=== PATIENT | male | born 1990 | race Caucasian/White ===

== ENCOUNTER 2017-06-17 08:47 | Emergency (ER) | payer SELFPAY ==
[2017-06-17] MEDS ORDERED: Proparacaine 0.5% Ophth Soln 15 ML Bottle EYERT STA (09:01)
--- NOTE | 2017-06-17 09:12 | EDM.PDOC ---
ED HPI GENERAL MEDICAL PROBLEM - General Chief Complaint: Eye Problems Stated Complaint: RIGHT EYE PAIN Time Seen by Provider: 06/17/17 08:51 Source of Information: Reports: Patient History Limitations: Reports: No Limitations - History of Present Illness INITIAL COMMENTS - FREE TEXT/NARRATIVE: History of present illness: []Patient awoke with right eye pain and redness that worsened after showering. He works with several chemicals and was wondering if he reactivated a chemical with the water in his eye. He denies any trauma and states he has difficulty seeing out of that eye however he has difficulty opening the eye. Review of systems: As per history of present illness and below otherwise all systems reviewed and negative. Past medical history: As per history of present illness and as reviewed below otherwise noncontributory. Surgical history: As per history of present illness and as reviewed below otherwise noncontributory. Social history: No reported history of drug or alcohol abuse. Family history: As per history of present illness and as reviewed below otherwise noncontributory. Physical exam: General: Well developed, well nourished in NAD HEENT: Atraumatic, normocephalic, pupils reactive, negative for conjunctival pallor or scleral icterus there is mild erythema., mucous membranes moist, throat clear, neck supple, nontender, trachea midline. Lungs: Clear to auscultation, breath sounds equal bilaterally, chest nontender. Heart: S1S2, regular, negative for clicks, rubs, or JVD. Abdomen: Soft, nondistended, nontender. Negative for masses or hepatosplenomegaly. Negative for costovertebral tenderness. Pelvis: Stable nontender. Genitourinary: Deferred. Rectal: Deferred. Extremities: Atraumatic, negative for cords or calf pain. Neurovascular unremarkable. Neuro: Awake, alert, oriented. Cranial nerves II through XII unremarkable. Cerebellum unremarkable. Motor and sensory unremarkable throughout. Exam nonfocal. Diagnostics: []Left eye was anesthetized with proparacaine and stained with fluorescein showing an abrasion approximately 5 to 6:00 below the cornea, on the sclera Therapeutics: [] Impression: []Scleral abrasion Plan: []Erythromycin ointment 3 times a day Definitive disposition and diagnosis as appropriate pending reevaluation and review of above. Right Eye Pain Score (Numeric/FACES): 6 - Related Data Allergies Allergy/AdvReac Type Severity Reaction Status Date / Time No Known Allergies Allergy Verified 06/17/17 08:54 Home Meds: Home Meds Erythromycin Base [Erythromycin 0.5% Ophth Oint] 1 applic OP TID #1 tube [Rx] Past Medical History - Past Health History Medical/Surgical History: Denies Medical/Surgical History Social & Family History - Tobacco Use Smoking Status *Q: Current Every Day Smoker Years of Tobacco use: 5 Packs/Tins Daily: 0.5 Second Hand Smoke Exposure: No - Caffeine Use Caffeine Use: Reports: Coffee, Soda, Tea - Alcohol Use Days Per Week of Alcohol Use: 1 Number of Drinks Per Day: 5 Total Drinks Per Week: 5 - Recreational Drug Use Recreational Drug Use: No Drug Use in Last 12 Months: Yes Recreational Drug Type: Reports: Marijuana/Hashish Recreational Drug Use Frequency: Daily Recreational Drug Last Use: 3 weeks ago ED ROS GENERAL - Review of Systems Review Of Systems: See Below (See history of present illness) ED EXAM GENERAL W FULL EYE - Physical Exam Exam: See Below (See history of present illness) Course - Vital Signs Last Recorded V/S: Last Vital Signs Temp 35.9 C 06/17/17 08:58 Pulse 71 06/17/17 08:58 Resp 18 06/17/17 08:58 BP 129/73 06/17/17 08:58 Pulse Ox 97 06/17/17 08:58 - Orders/Labs/Meds Meds: Medications Discontinued Medications Generic Name Dose Route Start Last Admin Trade Name Jaqui PRN Reason Stop Dose Admin Proparacaine HCl 1 ml 06/17/17 09:01 06/17/17 09:04 Proparacaine 0.5% Ophth Soln EYERT 06/17/17 09:02 2 drop NOW STA Administration Departure - Departure Time of Disposition: 09:10 Disposition: Home, Self-Care 01 Condition: Good Clinical Impression: Abrasion of sclera Qualifiers: Encounter type: initial encounter Laterality: right Qualified Code(s): S05.8X1A - Other injuries of right eye and orbit, initial encounter - Discharge Information Referrals: PCP,None [Primary Care Provider] - Additional Instructions: The following information is given to patients seen in the emergency department who are being discharged to home. This information is to outline your options for follow-up care. We provide all patients seen in our emergency department with a follow-up referral. The need for follow-up, as well as the timing and circumstances, are variable depending upon the specifics of your emergency department visit. If you don't have a primary care physician on staff, we will provide you with a referral. We always advise you to contact your personal physician following an emergency department visit to inform them of the circumstance of the visit and for follow-up with them and/or the need for any referrals to a consulting specialist. The emergency department will also refer you to a specialist when appropriate. This referral assures that you have the opportunity for follow-up care with a specialist. All of these measure are taken in an effort to provide you with optimal care, which includes your follow-up. Under all circumstances we always encourage you to contact your private physician who remains a resource for coordinating your care. When calling for follow-up care, please make the office aware that this follow-up is from your recent emergency room visit. If for any reason you are refused follow-up, please contact the [facility] Emergency Department at and asked to speak to the emergency department charge nurse. Erythromycin ointment 3 times a day for 1 week Follow-up with ophthalmology in one to 2 days return to ER if symptoms worsen or change [address] [address]
== END 2017-06-17 09:26 | disposition home or self-care (01) ==
LOC: MW.ED 08:47
DX: S05.8X1A Other injuries of right eye and orbit, initial encounter (principal); X58.XXXA Exposure to other specified factors, initial encounter
CPT/HCPCS: 99283

== ENCOUNTER 2018-09-20 13:21 | Emergency (ER) | payer SELFPAY ==
--- NOTE | 2018-09-20 13:25 | EDM.PDOC ---
ED HPI GENERAL MEDICAL PROBLEM - General Chief Complaint: General Stated Complaint: flu Time Seen by Provider: 09/20/18 13:22 Source of Information: Reports: Patient History Limitations: Reports: No Limitations - History of Present Illness INITIAL COMMENTS - FREE TEXT/NARRATIVE: HISTORY AND PHYSICAL: History of present illness: Patient is a 28-year-old male who presents to the ED with concerns for the flu. Patient states about a day or 2 ago he started developing subjective fevers, headache, body aches, diarrhea and vomiting. He states he feels nauseous and has thrown up approximately 5 times today with 2-3 episodes of watery diarrhea. Denies any blood in his stools. He states he has not eaten but has pushed fluids and as been hydrated. He states he also has had a sore throat the past several days. Patient has not checked his temperature at home, but has been taking ibuprofen [id number] to treat his symptoms without much relief. Patient denies visual changes, lightheadedness, syncope, hallucinations, shortness of breath, difficulties breathing, cough, nasal congestion, sinus pain , or all other GI, , cardiovascular, or respiratory symptoms. Patient denies any health history. Review of systems: As per history of present illness and below otherwise all systems reviewed and negative. Past medical history: As per history of present illness and as reviewed below otherwise noncontributory. Surgical history: As per history of present illness and as reviewed below otherwise noncontributory. Social history: See social history for further information Family history: As per history of present illness and as reviewed below otherwise noncontributory. Physical exam: General: Patient is alert, oriented, and in no acute distress. He is tired appearing but sitting comfortably on exam table. HEENT: Atraumatic, normocephalic, pupils equal and reactive bilaterally, negative for conjunctival pallor or scleral icterus, mucous membranes moist, TMs normal bilaterally, throat clear, neck supple, nontender, trachea midline. No drooling or trismus noted. No meningeal signs. No hot potato voice noted. Lungs: Clear to auscultation, breath sounds equal bilaterally, chest nontender. Heart: S1S2, regular rate and rhythm without overt murmur Abdomen: Soft, nondistended, nontender. Negative for masses or hepatosplenomegaly. Negative for costovertebral tenderness. Pelvis: Stable nontender. Genitourinary: Deferred. Rectal: Deferred. Skin: Intact, warm, dry. No lesions or rashes noted. Extremities: Atraumatic, moves all per self, negative for cords or calf pain. Neurovascular unremarkable. Neuro: Awake, alert, oriented. Cranial nerves II through XII unremarkable. Cerebellum unremarkable. Motor and sensory unremarkable throughout. Exam nonfocal. Notes: On exam, patient is tired appearing. Vitals today are reassuring. Will do lab work. Lab work is unremarkable. Patient is negative for influenza or strep. Patient did have slight elevation in liver function testing. Discussed the importance and need to follow-up primary care and have these labs repeated. Supportive care measures were reviewed and discussed. Voices understanding and is agreeable to plan of care. Denies any further questions or concerns at this time. Diagnostics: Influenza, strep, CBC, CMP Therapeutics: Zofran Prescription: Zofran Impression: Viral gastroenteritis, unspecified Transaminitis Plan: 1. Standard contact precautions (covering mouth while coughing, avoid sharing drinking cups and eating utensils). Please make sure you're doing good handwashing as you could be contagious. 2. Please take medications as directed. 3. Supportive care measures such as Tylenol and/or ibuprofen for pain and fever management.Encourage small frequent sips of fluids to prevent dehydration. 4. Follow-up with your primary care provider in the next 1-2 days. You can call Friday to make an appointment. Would repeat lab work from today from elevated liver function test. 5.Return to the ED as needed and as discussed. Definitive disposition and diagnosis as appropriate pending reevaluation and review of above. - Related Data Allergies Allergy/AdvReac Type Severity Reaction Status Date / Time latex Allergy Rash Verified 09/20/18 13:32 Home Meds: Home Meds Ondansetron [Zofran ODT] 4 mg PO Q6H PRN #10 tab.dis 09/20/18 [Rx] Past Medical History - Past Health History Medical/Surgical History: Denies Medical/Surgical History Social & Family History - Caffeine Use Caffeine Use: Reports: Coffee, Soda, Tea ED ROS GENERAL - Review of Systems Review Of Systems: ROS reveals no pertinent complaints other than HPI. ED EXAM, GENERAL - Physical Exam Exam: See Below (See dictation) Course - Vital Signs Last Recorded V/S: Last Vital Signs Temp 96.1 F 09/20/18 13:32 Pulse 100 09/20/18 13:32 Resp 20 09/20/18 13:32 BP 133/88 09/20/18 13:32 Pulse Ox 99 09/20/18 13:32 - Orders/Labs/Meds Orders: Active Orders 24 hr Category Date Time Status CULTURE STREP A CONFIRMATION [] Stat Lab 09/20/18 13:35 Results STREP SCRN A RAPID W CULT CONF [RM] Stat Lab 09/20/18 13:35 Results Labs: Laboratory Tests 09/20/18 09/20/18 Range/Units 14:23 14:23 WBC 6.39 (4.0-11.0) K/uL RBC 6.13 H (4.50-5.90) M/uL Hgb 18.4 H (13.0-17.0) g/dL Hct 52.8 H (38.0-50.0) % MCV 86.1 (80.0-98.0) fL MCH 30.0 (27.0-32.0) pg MCHC 34.8 (31.0-37.0) g/dL RDW Std Deviation 38.3 (28.0-62.0) fl RDW Coeff of Ervin 12 (11.0-15.0) % Plt Count 167 (150-400) K/uL MPV 10.90 (7.40-12.00) fL Neut % (Auto) 75.8 (48.0-80.0) % Lymph % (Auto) 10.8 L (16.0-40.0) % [place] % (Auto) 12.7 (0.0-15.0) % Eos % (Auto) 0.5 (0.0-7.0) % Baso % (Auto) 0.2 (0.0-1.5) % Neut # (Auto) 4.9 (1.4-5.7) K/uL Lymph # (Auto) 0.7 (0.6-2.4) K/uL [place]ward # (Auto) 0.8 (0.0-0.8) K/uL Eos # (Auto) 0.0 (0.0-0.7) K/uL Baso # (Auto) 0.0 (0.0-0.1) K/uL Nucleated RBC % 0.0 /100WBC Nucleated RBCs # 0 K/uL Sodium 139 (136-148) mmol/L Potassium 3.7 (3.5-5.1) mmol/L Chloride 101 (98-107) mmol/L Carbon Dioxide 29.0 (21.0-32.0) mmol/L BUN 11 (7.0-18.0) mg/dL Creatinine 1.4 H (0.8-1.3) mg/dL Est Cr Clr Drug Dosing 92.15 mL/min Estimated GFR (MDRD) > 60.0 ml/min Glucose 102 (74-106) mg/dL Calcium 9.4 (8.5-10.1) mg/dL Total Bilirubin 0.4 (0.2-1.0) mg/dL AST 47 H (15-37) IU/L ALT 121 H (14-63) IU/L Alkaline Phosphatase 136 H (46-116) U/L Total Protein 7.9 (6.4-8.2) g/dL Albumin 4.0 (3.4-5.0) g/dL Globulin 3.9 (2.6-4.0) g/dL Albumin/Globulin Ratio 1.0 (0.9-1.6) Meds: Medications Discontinued Medications Generic Name Dose Route Start Last Admin Trade Name Freq PRN Reason Stop Dose Admin Ondansetron HCl 4 mg 09/20/18 13:40 09/20/18 13:45 Zofran Odt PO 09/20/18 13:41 4 mg ONETIME ONE Administration Departure - Departure Time of Disposition: 15:01 Disposition: Home, Self-Care 01 Clinical Impression: Gastroenteritis, Transaminitis - Discharge Information Prescriptions: Ondansetron [Zofran ODT] 4 mg PO Q6H PRN #10 tab.dis PRN Reason: Nausea/Vomiting Instructions: Viral Gastroenteritis, Adult, [id number] Referrals: PCP,Unknown [Primary Care Provider] - Forms: ED Department Discharge Additional Instructions: The following information is given to patients seen in the emergency department who are being discharged to home. This information is to outline your options for follow-up care. We provide all patients seen in our emergency department with a follow-up referral. The need for follow-up, as well as the timing and circumstances, are variable depending upon the specifics of your emergency department visit. If you don't have a primary care physician on staff, we will provide you with a referral. We always advise you to contact your personal physician following an emergency department visit to inform them of the circumstance of the visit and for follow-up with them and/or the need for any referrals to a consulting specialist. The emergency department will also refer you to a specialist when appropriate. This referral assures that you have the opportunity for follow-up care with a specialist. All of these measure are taken in an effort to provide you with optimal care, which includes your follow-up. Under all circumstances we always encourage you to contact your private physician who remains a resource for coordinating your care. When calling for follow-up care, please make the office aware that this follow-up is from your recent emergency room visit. If for any reason you are refused follow-up, please contact the [facility] Emergency Department at and asked to speak to the emergency department charge nurse. [facility] [address] [place] [id number] [place] [address] 1. Standard contact precautions (covering mouth while coughing, avoid sharing drinking cups and eating utensils). Please make sure you're doing good handwashing as you could be contagious. 2. Please take medications as directed. 3. Supportive care measures such as Tylenol and/or ibuprofen for pain and fever management.Encourage small frequent sips of fluids to prevent dehydration. 4. Follow-up with your primary care provider in the next 1-2 days. You can call Friday to make an appointment. Would repeat lab work from today from elevated liver function test. 5.Return to the ED as needed and as discussed. - My Orders Last 24 Hours: My Active Orders 09/20/18 13:35 CULTURE STREP A CONFIRMATION [RM] Stat STREP SCRN A RAPID W CULT CONF [RM] Stat - Assessment/Plan Last 24 Hours: My Active Orders 09/20/18 13:35 CULTURE STREP A CONFIRMATION [RM] Stat STREP SCRN A RAPID W CULT CONF [RM] Stat
[2018-09-20] MEDS ORDERED: Ondansetron 4 MG Tab.DIS PO ONE (13:40)
[2018-09-20 14:50] LABS: CHLORIDE,CL 101 mmol/L (98-107); SODIUM,NA 139 mmol/L (136-148)
== END 2018-09-20 15:10 | disposition home or self-care (01) ==
LOC: MW.ED 13:21
DX: A08.4 Viral intestinal infection, unspecified (principal); R74.0 Nonspecific elevation of levels of transaminase and lactic acid dehydrogenase [LDH]; Z91.040 Latex allergy status
CPT/HCPCS: 36415; 80053; 85025; 87081; 87804; 87880; 99284; A9270; 99283

== ENCOUNTER 2019-08-09 15:31 | Emergency (ER) | payer SELFPAY ==
--- NOTE | 2019-08-09 15:53 | EDM.PDOC ---
ED HPI GENERAL MEDICAL PROBLEM - General Chief Complaint: Cardiovascular Problem Stated Complaint: ABNORMAL HEART BEAT,CHEST PAIN Time Seen by Provider: 08/09/19 15:53 Source of Information: Reports: Patient History Limitations: Reports: No Limitations - History of Present Illness INITIAL COMMENTS - FREE TEXT/NARRATIVE: HISTORY AND PHYSICAL: History of present illness: Patient is a 28-year-old male presents to the ED with complaint of palpitations and chest pain. He states he has had palpitations on and off for the past 8 months. He states they last anywhere from a couple of minutes to a couple of hours and usually occurs daily. He states they occur when he is feeling anxious. He states today the palpitations began about 5 hours prior to arrival to the ED and he is having left sided chest pain. He states the chest pain resolved while in the ED. He denies cough, shortness of breath, nausea, vomiting , fevers chills. He reports drinking 2 cups of coffee and 2 cans of soda daily. He smokes 1/2 ppd x 8 years. He denies significant past medical history. Denies alcohol or illicit drug use. Review of systems: As per history of present illness and below otherwise all systems reviewed and negative. Past medical history: As per history of present illness and as reviewed below otherwise noncontributory. Surgical history: As per history of present illness and as reviewed below otherwise noncontributory. Social history: No reported history of drug or alcohol abuse. Family history: As per history of present illness and as reviewed below otherwise noncontributory. Physical exam: General: Patient sitting comfortably in no acute distress and nontoxic appearing HEENT: Atraumatic, normocephalic, pupils reactive, negative for conjunctival pallor or scleral icterus, mucous membranes moist, throat clear, neck supple, nontender, trachea midline. No meningeal signs. Lungs: Clear to auscultation, breath sounds equal bilaterally, chest nontender. Heart: S1S2, regular, negative for clicks, rubs, or overt murmur. Abdomen: Soft, nondistended, nontender. Negative for masses or hepatosplenomegaly. Negative for costovertebral tenderness. No rigidity, rebound , guarding. Pelvis: Stable nontender. Genitourinary: Deferred. Rectal: Deferred. Extremities: Atraumatic, negative for cords or calf pain. Neurovascular unremarkable. Neuro: Awake, alert, oriented. Cranial nerves II through XII unremarkable. Cerebellum unremarkable. Motor and sensory unremarkable throughout. Exam nonfocal. Notes: Diagnostics: EKG, CXR, troponin, CBC, CMP Therapeutics: none Prescriptions: none Impression: Palpitations, atypical chest pain Plan: Follow up with primary care provider and global transportation manager Return to ED as needed as discussed Definitive disposition and diagnosis as appropriate pending reevaluation and review of above. Left Chest Pain Score (Numeric/FACES): 3 - Related Data Allergies Allergy/AdvReac Type Severity Reaction Status Date / Time latex Allergy Rash Verified 08/09/19 15:39 Home Meds: Home Meds . [No Known Home Meds] 08/09/19 [History] Past Medical History - Past Health History Medical/Surgical History: Denies Medical/Surgical History Musculoskeletal History: Reports: Fracture, Other (See Below) Other Musculoskeletal History: jaw surgery - Infectious Disease History Infectious Disease History: Reports: None - Past Surgical History HEENT Surgical History: Reports: Oral Surgery Neurological Surgical History: Reports: Scoliosis Social & Family History - Family History Family Medical History: Noncontributory - Tobacco Use Smoking Status *Q: Current Every Day Smoker Years of Tobacco use: 8 Packs/Tins Daily: 0.5 - Caffeine Use Caffeine Use: Reports: Coffee, Soda - Recreational Drug Use Recreational Drug Use: No ED ROS GENERAL - Review of Systems Review Of Systems: Comprehensive ROS is negative, except as noted in HPI. ED EXAM, GENERAL - Physical Exam Exam: See Below (see dictation) Course - Vital Signs Last Recorded V/S: Last Vital Signs Temp 97.1 F 08/09/19 15:40 Pulse 84 08/09/19 15:40 Resp 20 08/09/19 15:40 BP 138/76 08/09/19 15:40 Pulse Ox 98 08/09/19 15:40 - Orders/Labs/Meds Orders: Active Orders 24 hr Category Date Time Status EKG Documentation Completion [RC] STAT Care 08/09/19 15:39 Active Labs: Laboratory Tests 08/09/19 08/09/19 Range/Units 16:09 16:09 WBC 6.94 (4.0-11.0) K/uL RBC 5.54 (4.50-5.90) M/uL Hgb 16.6 (13.0-17.0) g/dL Hct 48.0 (38.0-50.0) % MCV 86.6 (80.0-98.0) fL MCH 30.0 (27.0-32.0) pg MCHC 34.6 (31.0-37.0) g/dL RDW Std Deviation 39.7 (28.0-62.0) fl RDW Coeff of Ervin 12 (11.0-15.0) % Plt Count 229 (150-400) K/uL MPV 11.30 (7.40-12.00) fL Neut % (Auto) 66.3 (48.0-80.0) % Lymph % (Auto) 26.7 (16.0-40.0) % [place] % (Auto) 5.9 (0.0-15.0) % Eos % (Auto) 0.7 (0.0-7.0) % Baso % (Auto) 0.4 (0.0-1.5) % Neut # (Auto) 4.6 (1.4-5.7) K/uL Lymph # (Auto) 1.9 (0.6-2.4) K/uL [place] # (Auto) 0.4 (0.0-0.8) K/uL Eos # (Auto) 0.1 (0.0-0.7) K/uL Baso # (Auto) 0.0 (0.0-0.1) K/uL Nucleated RBC % 0.0 /100WBC Nucleated RBCs # 0 K/uL Sodium 141 (136-148) mmol/L Potassium 3.9 (3.5-5.1) mmol/L Chloride 103 (98-107) mmol/L Carbon Dioxide 28.5 (21.0-32.0) mmol/L BUN 10 (7.0-18.0) mg/dL Creatinine 1.1 (0.8-1.3) mg/dL Est Cr Clr Drug Dosing 117.28 mL/min Estimated GFR (MDRD) > 60.0 ml/min Glucose 93 (74-106) mg/dL Calcium 9.9 (8.5-10.1) mg/dL Total Bilirubin 0.2 (0.2-1.0) mg/dL AST 29 (15-37) IU/L ALT 67 H (14-63) IU/L Alkaline Phosphatase 140 H (46-116) U/L Troponin I < 0.050 (0.000-0.056) ng/mL Total Protein 8.0 (6.4-8.2) g/dL Albumin 4.4 (3.4-5.0) g/dL Globulin 3.6 (2.6-4.0) g/dL Albumin/Globulin Ratio 1.2 (0.9-1.6) Departure - Departure Time of Disposition: 17:15 Disposition: Home, Self-Care 01 Condition: Good Clinical Impression: Palpitations, Chest pain Referrals: PCP,None [Primary Care Provider] - Forms: ED Department Discharge Additional Instructions: The following information is given to patients seen in the emergency department who are being discharged to home. This information is to outline your options for follow-up care. We provide all patients seen in our emergency department with a follow-up referral. The need for follow-up, as well as the timing and circumstances, are variable depending upon the specifics of your emergency department visit. If you don't have a primary care physician on staff, we will provide you with a referral. We always advise you to contact your personal physician following an emergency department visit to inform them of the circumstance of the visit and for follow-up with them and/or the need for any referrals to a consulting specialist. The emergency department will also refer you to a specialist when appropriate. This referral assures that you have the opportunity for follow-up care with a specialist. All of these measure are taken in an effort to provide you with optimal care, which includes your follow-up. Under all circumstances we always encourage you to contact your private physician who remains a resource for coordinating your care. When calling for follow-up care, please make the office aware that this follow-up is from your recent emergency room visit. If for any reason you are refused follow-up, please contact the [facility] Emergency Department at and asked to speak to the emergency department charge nurse. [facility] [address] [place] [id number] [address] Follow up with primary care provider and global transportation manager Return to ED as needed as discussed Sepsis Event Note - Evaluation Sepsis Screening Result: No Definite Risk - Focused Exam Vital Signs: Vital Signs Temp Pulse Resp BP Pulse Ox 08/09/19 15:40 97.1 F 84 20 138/76 98 Date Exam was Performed: 08/09/19 Time Exam was Performed: 17:15 - My Orders Last 24 Hours: My Active Orders 08/09/19 15:39 EKG Documentation Completion [RC] STAT - Assessment/Plan Last 24 Hours: My Active Orders 08/09/19 15:39 EKG Documentation Completion [RC] STAT
[2019-08-09 16:41] LABS: BLOOD UREA NITROGEN,BUN 10 mg/dL (7.0-18.0); CARBON DIOXIDE,CO2 28.5 mmol/L (21.0-32.0); CHLORIDE,CL 103 mmol/L (98-107); GLUCOSE RANDOM 93 mg/dL (74-106); POTASSIUM,K 3.9 mmol/L (3.5-5.1); SODIUM,NA 141 mmol/L (136-148)
--- NOTE | 2019-08-09 17:09 | CR ---
Chest: 2 views of the chest were obtained. Comparison: Prior chest x-ray of 04/04/13. Heart size and mediastinum are normal. Lungs are clear with no acute parenchymal change. Disc space narrowing is noted within a single vertebral level within the mid to lower thoracic spine with anterior osteophytes. Minimal scoliosis is also noted. Impression: 1. Slight degenerative change within the spine with minimal scoliosis. 2. Nothing acute is appreciated on 2 view chest x-ray. Diagnostic code #2 This report was dictated in [place] Standard Time
== END 2019-08-09 17:29 | disposition home or self-care (01) ==
LOC: MW.ED 15:31
DX: R00.2 Palpitations (principal); R07.89 Other chest pain; Z91.040 Latex allergy status; F17.210 Nicotine dependence, cigarettes, uncomplicated
CPT/HCPCS: 36415; 71046; 71046-26; 80053; 84484; 85025; 93005; 99283; 99285-25

== ENCOUNTER 2022-01-21 13:27 | Emergency (ER) | payer MEDICAID ==
[2022-01-21] MEDS ORDERED: Lidocaine 2% Viscous Solution 15 ML UD PO ONE (13:58)
[2022-01-21] MEDS ORDERED: Benzocaine 20% Topical Spray UD MUCMEM ONE (13:58)
== END 2022-01-21 14:39 | disposition home or self-care (01) ==
LOC: MW.ED 13:27
DX: K04.7 Periapical abscess without sinus (principal); F17.210 Nicotine dependence, cigarettes, uncomplicated
CPT/HCPCS: 99282; A9270

== ENCOUNTER 2022-05-02 07:06 | Emergency (ER) | payer MEDICAID ==
[2022-05-02] MEDS: Ibuprofen 600 MG Tab ONE (07:42)
[2022-05-02] MEDS: Cephalexin 500 MG Cap ONE (07:42)
[2022-05-02] MEDS: Cephalexin 500 MG Cap PO ONE (07:43)
[2022-05-02] MEDS: Ibuprofen 600 MG Tab PO ONE (07:43)
== END 2022-05-02 07:47 | disposition home or self-care (01) ==
LOC: MW.ED 07:06
DX: K04.7 Periapical abscess without sinus (principal); Z79.899 Other long term (current) drug therapy; Z91.040 Latex allergy status
CPT/HCPCS: 99282; A9270

== ENCOUNTER 2023-01-21 10:10 | Emergency (ER) | payer MEDICAID ==
[2023-01-21] MEDS ORDERED: Amoxicillin/Clavulanate K 875-125 MG Tab PO ONE (10:50)
[2023-01-21] MEDS ORDERED: Dexamethasone 10 MG/ML SDV PO ONE (10:51)
== END 2023-01-21 11:34 | disposition home or self-care (01) ==
LOC: MW.ED 10:10
DX: J02.0 Streptococcal pharyngitis (principal)
CPT/HCPCS: 87651; 99283; A9270; J8540

== ENCOUNTER 2024-05-03 08:24 | Emergency (ER) | payer SELFPAY ==
[2024-05-03] MEDS: Sodium Chloride 0.9% 1,000 ML IV ONE (09:17)
[2024-05-03 09:21] LABS: BASOPHILS ABSOLUTE AUTO 0.03 K/uL (0.00-0.20); BASOPHILS PERCENT AUTO 0.5 % (0.0-1.0); EOSINOPHILS ABSOLUTE AUTO 0.05 K/uL (0.00-0.45); EOSINOPHILS PERCENT AUTO 0.8 % (0.0-6.0); HEMATOCRIT 48.7 % (42.0-52.0); HEMOGLOBIN 16.6 g/dL (14.0-18.0); IMMATURE GRAN ABSOLUTE AUTO 0.01 K/uL (0.00-0.05); IMMATURE GRAN PERCENT AUTO 0.2 % (0.0-0.4); LYMPHOCYTES ABSOLUTE AUTO 1.73 K/uL (1.00-4.80); MEAN CORPUSCULAR HEMOGLOBIN 29.4 pg (28.0-32.0); MEAN CORPUSCULAR HGB CONC 34.1 g/dL (32.0-36.0); MEAN CORPUSCULAR VOLUME 86.3 fL (83.0-99.0); MEAN PLATELET VOLUME 10.9 fL (9.4-12.4); MONOCYTES ABSOLUTE AUTO 0.56 K/uL (0.00-0.80); MONOCYTES PERCENT AUTO 9.1 % (0.0-8.0); NEUTROPHILS PERCENT AUTO 61.4 % (41.0-71.0); PLATELET COUNT,PLT 244 K/uL (150-400); RED BLOOD CELL COUNT 5.64 M/uL (4.52-5.90); WHITE BLOOD CELL COUNT,WBC 6.18 K/uL (3.9-11.3)
[2024-05-03] MEDS: LORazepam 1 MG Tab PO ONE (09:49)
[2024-05-03 09:59] LABS: A/G RATIO 1.3 (0.9-1.6); ALANINE AMINOTRANSFERASE,ALT 68 IU/L (14-63); ALBUMIN 4.6 g/dL (3.4-5.0); ALKALINE PHOSPHATASE 133 U/L (46-116); ASPARTATE AMNIOTRANSFERASE,AST 31 IU/L (15-37); BILIRUBIN TOTAL 0.6 mg/dL (0.2-1.0); BLOOD UREA NITROGEN,BUN 10 mg/dL (7.0-18.0); CALCIUM 9.7 mg/dL (8.5-10.1); CARBON DIOXIDE,CO2 29.9 mmol/L (21.0-32.0); CHLORIDE,CL 103 mmol/L (98-107); CREATININE 1.2 mg/dL (0.8-1.3); EST CRCL DRUG DOSING (CG) 99.88 mL/min; GLUCOSE RANDOM 90 mg/dL (74-106); POTASSIUM,K 3.7 mmol/L (3.5-5.1); PROTEIN TOTAL,TP 8.1 g/dL (6.4-8.2); SODIUM,NA 140 mmol/L (136-148)
[2024-05-03 10:11] LABS: ESTIMATED GFR 82 mL/min (>60)
== END 2024-05-03 10:50 | disposition home or self-care (01) ==
LOC: MW.ED 08:24
DX: R55 Syncope and collapse (principal)
CPT/HCPCS: 36415; 70450; 71045; 80053; 84484; 85025; 85379; 93005; 96360; 99284; J7030

== ENCOUNTER 2025-01-27 09:41 | Emergency (ER) | payer MEDICAID ==
[2025-01-27 10:33] LABS: BASOPHILS ABSOLUTE AUTO 0.02 K/uL (0.00-0.20); BASOPHILS PERCENT AUTO 0.4 % (0.0-1.0); EOSINOPHILS ABSOLUTE AUTO 0.02 K/uL (0.00-0.45); EOSINOPHILS PERCENT AUTO 0.4 % (0.0-6.0); IMMATURE GRAN ABSOLUTE AUTO 0.01 K/uL (0.00-0.05); IMMATURE GRAN PERCENT AUTO 0.2 % (0.0-0.4); LYMPHOCYTES ABSOLUTE AUTO 1.12 K/uL (1.00-4.80); LYMPHOCYTES PERCENT AUTO 22.8 % (24.0-44.0); MEAN PLATELET VOLUME 10.9 fL (9.4-12.4); MONOCYTES ABSOLUTE AUTO 0.35 K/uL (0.00-0.80); MONOCYTES PERCENT AUTO 7.1 % (0.0-8.0); NEUTROPHILS ABSOLUTE AUTO 3.39 K/uL (1.80-7.70); NEUTROPHILS PERCENT AUTO 69.1 % (41.0-71.0); NRBC ABSOLUTE 0.00 K/uL (0.00-0.02); NRBC PERCENT 0.0 /100WBC (0.0-0.2); PLATELET COUNT,PLT 209 K/uL (150-400); RED BLOOD CELL COUNT 5.30 M/uL (4.52-5.90); WHITE BLOOD CELL COUNT,WBC 4.91 K/uL (3.9-11.3)
[2025-01-27 10:52] LABS: APPEARANCE,URINE CLEAR; GLUCOSE,URINE NEGATIVE (NEGATIVE); OCCULT BLOOD,URINE NEGATIVE (NEGATIVE)
[2025-01-27 11:05] LABS: A/G RATIO 1.4 (0.9-1.6); ALANINE AMINOTRANSFERASE,ALT 66 IU/L (14-63); ASPARTATE AMNIOTRANSFERASE,AST 33 IU/L (15-37); BILIRUBIN TOTAL 0.4 mg/dL (0.2-1.0); BLOOD UREA NITROGEN,BUN 11 mg/dL (7.0-18.0); CARBON DIOXIDE,CO2 30.1 mmol/L (21.0-32.0); CHLORIDE,CL 105 mmol/L (98-107); CREATININE 1.3 mg/dL (0.8-1.3); EST CRCL DRUG DOSING (CG) 91.34 mL/min; ETHANOL BLOOD MEDICAL <3 mg/dL; GLUCOSE RANDOM 85 mg/dL (74-106); POTASSIUM,K 3.8 mmol/L (3.5-5.1); PROTEIN TOTAL,TP 7.2 g/dL (6.4-8.2); SODIUM,NA 144 mmol/L (136-148); TSH ULTRASENSITIVE 0.61 uIU/mL (0.36-3.74)
[2025-01-27 11:06] LABS: ESTIMATED GFR 74 mL/min (>60)
[2025-01-27 11:07] LABS: AMPHETAMINES SCREEN, URINE NEGATIVE (CUTOFF=500); BUPRENORPHINE SCREEN,URINE NEGATIVE (CUTOFF=10); METHADONE SCREEN, URINE NEGATIVE (CUTOFF=200); METHAMPHETAMINES SCREEN, URINE NEGATIVE (CUTOFF=500); OXYCODONE SCREEN,URINE NEGATIVE (CUT0FF=100); PCP SCREEN,URINE NEGATIVE (CUTOFF=25); THC SCREEN,URINE 20 NG/ML PRESUMPTIVE POSITIVE (CUTOFF=50)
== END 2025-01-27 13:06 ==
LOC: MW.ED 09:41
DX: R45.851 Suicidal ideations (principal); Z75.3 Unavailability and inaccessibility of health-care facilities; Z91.040 Latex allergy status
CPT/HCPCS: 36415; 80053; 80143; 80179; 80305; 80307; 81003; 83735; 84443; 85025; 99285; A9270